=== PATIENT | female | born 1990 | race Caucasian/White ===

== ENCOUNTER 2024-09-09 11:44 | Outpatient (CLI) | payer BC, SELFPAY ==
[2024-09-09 12:25] LABS: Albumin Level 4.2 g/dl (3.5-5.0); Chloride 105 mmol/L (98-107); Potassium 3.8 mmoL/L (3.5-5.1); Sodium 140 mmol/L (136-145)
[2024-09-09 12:27] LABS: Blood Urea Nitrogen 11 mg/dl (7-17); Estimated Glomerular Filt Rate 72 ml/min (>60); GFR (African American) 87 ML/MIN (>60)
[2024-09-09 12:28] LABS: Alanine Aminotransferase 17 U/L (12-78); Albumin/Globulin Ratio 1.4 (1.1-1.8); Alkaline Phosphatase 100 U/L (38-126); Anion Gap 8.8 mEq/L (5-15); Aspartate Amino Transferase 28 U/L (14-36); Bilirubin,Total 0.7 mg/dl (0.2-1.3); Calcium 8.5 mg/dl (8.4-10.2); Carbon Dioxide 30 mmol/L (22.0-30.0); Globulin 2.9 g/dL (1.3-3.2); Glucose 90 mg/dl (74-100); Total Protein,Serum 7.1 g/dl (6.3-8.2)
[2024-09-09 12:30] LABS: Basophils # 0.1 K/mm3 (0-0.2); Basophils % 1.3 % (0.1-2.0); Eosinophils # 0.2 K/mm3 (0.0-0.4); Eosinophils % 6.5 % (0.1-12.0); Hematocrit 41.3 % (37.0-47.0); Hemoglobin 13.5 g/dL (12.2-16.2); Lymphocytes # 1.2 K/mm3 (0.7-4.5); Lymphocytes % 31.4 % (10-50); Mean Corpuscular HGB Conc 32.7 g/dL (31.8-35.4); Mean Corpuscular Hemoglobin 28.2 pg (27.0-31.2); Mean Corpuscular Volume 86.3 fl (81-99); Mean Platelet Volume 8.1 fl (7.4-10.4); Monocytes # 0.3 K/mm3 (0.1-1.0); Monocytes % 7.8 % (1.7-9.3); Platelet Count 237 K/mm3 (142-424); Red Blood Count 4.79 M/mm3 (4.20-5.40); Red Cell Distribution Width 13.8 % (11.5-17.5); White Blood Count 3.7 K/mm3 (4.8-10.8)
[2024-09-09 12:49] LABS: HCG,Quantitative < 2 mIU/ml (0-5.42)
== END 2024-09-09 23:59 | disposition home or self-care (01) ==
LOC: PREOP 11:44
PROVIDERS: PCP Family Medicine; Visit Provider Obstetrics & Gynecology
DX: Z30.09 Encounter for other general counseling and advice on contraception (principal)
CPT/HCPCS: 80053; 84702; 85025

== ENCOUNTER 2024-09-12 07:39 | Day surgery (SDC) | payer BC, SELFPAY ==
[2024-09-09 11:57] VITALS: BMI 28.3
[2024-09-12] VITALS (12 sets, daily range): BP systolic 118–126; BP diastolic 62–77; PULSE 84–110; RESP 14–20; TEMP 36.5–36.7; O2SAT 96–100; BMI 28.3
[2024-09-12] MEDS: LACTATED RINGERS 1000ML 1,000 ML 25 ML IV (08:04)
--- NOTE | 2024-09-12 11:08 | P.PNANES_ITS ---
[facility] Disclaimer: The information contained in this section may have been updated after the patient was seen, as this information can be updated by other users. Medical History Anemia ADHD (attention deficit hyperactivity disorder) Anxiety Depression Surgical History History of abdominoplasty History of weight loss surgery Family History Father Heart attack Hypertension Mother Diabetes Grandmother Diabetes Social History Smoking Status: Never smoker alcohol intake: never substance use type: denies use current occupational status: employed Travel in the last 8 weeks: None [facility] Anesthesia Checklist Patient Identification Patient Identification: Arm Band Structural Data Admitted From: Home Planned Operative Procedure/s: Laparoscopic Bilateral Salpingectomy Consent for Planned Operative Procedure(s) Verified: Yes Verified Documents: Surgical Consent and History and Physical NPO Status Verified Time NPO: 00:00 Additional verifications Anesthesia Reactions: No Hx Blood Transfusions: No Blood Transfusion Reaction: No Airway Assessment Mallampati Score:: Class II C-Spine Mobility Assessed: Yes TMJ Mobility Assessed: Yes Dentition: Good Dentition Neurological Assessment Level of Consciousness: Awake, Alert and Appropriate Anesthesia Plan Anesthesia Risk discussed: Yes Anesthesia Plan: Verified ASA Class: II Anesthesia Type: General
[2024-09-12] MEDS: LIDOCAINE 1% W/EPI 1:100,000 20ML VIAL 40 ML (11:11)
--- NOTE | 2024-09-12 11:51 | P.PNANES_ITS ---
[facility] Anesthesia Record Part I Anesthesia Record I Intake, IV Amount: 1,200 Hydration: Adequate Estimated blood loss (mL): 10 Urine output (mL): 100 Blood Products used (#): none Blood Pressure: 118/63 SaO2: 100 Pulse Rate: 103 Airway Patency: Patent Respiratory Rate: 16 Temperature: 98.1 F Patient is:: Drowsy and Stable Stable to PACU at:: 11:45
--- NOTE | 2024-09-12 12:05 | EXP.OP.NOTE ---
Date of procedure: 09/12/24 Pre-op Diagnosis:: 1. Desires sterilization 2. Desires IUD removal Post-op Diagnosis:: 1. Desires sterilization 2. Desires IUD removal Procedure performed:: Laparoscopic bilateral salpingectomy and IUD removal Surgeon:: Hermila Clemente DO COMPUTER APPLICATIONS INSTRUCTOR:: Gerson Peña Anesthesia: GETA Estimated blood loss (mL): 5 Operative findings:: 1. Bimanual examination revealed an anteverted 6-week size uterus with smooth contour without any adnexal masses. IUD removed without difficulty 2. Laparoscopic exam revealed normal-appearing uterus, ovaries, fallopian tubes and liver. Operative note:: Yarelis Whiting is a 34yo who desires permanent sterilization. Risk and benefits were reviewed at length. We discussed LARCs and she desired to proceed with a permanent procedure. The patient was taken to the operating room where general anesthesia was obtained and noted to be adequate. SCDs were placed for thromboembolism prophylaxis and found to be working. The patient was placed in the dorsal lithotomy position using yellowfin stirrups. Timeout verified the correct patient and procedure. The patient was prepped and draped in a usual sterile fashion. A catheter was used to drain her bladder. The cervix was identified but IUD strings were not. A long micha was placed in the cervical canal and the IUD was grasped and easily removed. A uterine manipulator was placed and my top gloves were removed. 10mL of Lidocaine with epinepherine was injected infraumbilically and a scalpel was used to make a 5 mm infraumbilical incision with the assistance from a hemostat. The skin was tented and Optiview blunt trocar was introduced into the abdomen in the usual fashion. After a second attempt and no abdominal access decision was made to proceed with entry at [facility]. Anesthesia inserted an OG tube, the area was identified, numbed and a small 5mm incision was made. The skin was tented and Optiview blunt trocar was introduced into the abdomen in the usual fashion. CO2 gas was connected with an initial pressure of 9 mmHg noted. Pneumoperitoneum was created to a pressure of 15 mmHg. The laparoscopic camera was inserted and a quick survey of the abdomen revealed grossly normal anatomy without injury. The uterus appeared to be anteverted with a normal size shape and contour. The patient was placed in Trendelenburg. 10mLs of local anesthetic was injected and a 5mm incision was then made in the left lower quadrant with careful attention to avoid the rectus muscles and vasculature and under direct laparoscopic visualization a blunt trocar was introduced into the abdominal cavity. This process was repeated at the infraumbilical location. The fallopian tubes were identified on the cornu of the uterus and followed out to the ovaries which revealed grossly appearing anatomy. A grasper was used to elevate the left fallopian tube. The Ligasure was used to grasp the fimbriated end of the fallopian tube, ensuring complete removal of the fimbriae, it was clamped, coagulated and transected. This process was repeated serially working towards the uterus to allow complete removal of the fallopian tube. Careful attention was given to transected the Mesosalpinx proximal to the fallopian tube. The fallopian tube was removed from the abdominal cavity and passed off the operative field to be sent to pathology. Hemostasis was noted. Attention was then turned to the right fallopian tube and the process was repeated. Hemostasis was noted and the tube was removed along with the trocar and handed off the operative field to be sent to pathology. Pneumoperitoneum reduced, and all ports removed. The 3 abdominal incisions were closed with 4-0 Monocryl. Dermabond was applied to each skin incision. The uterine manipulator was removed. All counts were correct x2, per nursing. The patient was extubated, stable, and transferred to the PACU. She will be discharged after meeting all DC criteria to include voiding, ambulating and tolerating PO independently. Condition: stable Disposition: same day Specimens:: Bilateral fallopian tubes Complications:: None
[2024-09-12] MEDS: MEPERIDINE 25MG/ML 1ML SYRINGE 25 MG IV (12:09)
--- NOTE | 2024-09-12 17:04 | EXP.ANES.II ---
[facility] Anesthesia Record Part II Anesthesia Record Part II Discharge Time: 12:30 Destination: Surgical Day Care (OP Surgery) PACU nurse assessment reviewed?: Yes Patient Condition:: Good Anesthesia Complications:: None Swallowing reflex intact?: Yes Airway Patency: Patent Cyanosis?: No Blood Pressure: 126/71 SaO2: 100 Respiratory Rate: 20 Pulse Rate: 93 Temperature: 98.1 F Mental Status: Alert & Oriented Pain level:: 0 Nausea and/or vomitting:: None Intake, IV Amount: 0 Hydration: Adequate
== END 2024-09-12 13:08 | disposition home or self-care (01) ==
PROVIDERS: PCP Family Medicine; Visit Provider Obstetrics & Gynecology
PROC: (CPT 58301; principal; 2024-09-12 09:15)
DX: Z30.2 Encounter for sterilization (principal); Z30.432 Encounter for removal of intrauterine contraceptive device
CPT/HCPCS: 58301; 58661; J3490; J1100; J1885; J2175; J2250; J2405; J3010; J7120

== ENCOUNTER 2025-02-12 09:05 | Day surgery (SDC) | payer BC, OTHER, SELFPAY ==
[2025-02-12 09:56] VITALS: BP 107/66; PULSE 65; RESP 18; TEMP 36.1; O2SAT 100; BMI 27.4
--- NOTE | 2025-02-12 13:59 | HMH.PROCNOTE ---
[facility] Procedure Note Date: 02/12/25 Time: 10:43 Procedure Note:: TEST: Upright Tilt Table Test REQUESTING PHYSICIAN: Shayla Anne MD INDICATION: dizziness and syncope MEDS: Adderrall, Reqip, Semaglutide, Lactulose PRE-TEST VITAL SIGNS (SUPINE): BP 123/62, HR 65, O2 sats 99% TEST SUMMARY: Patient was prepared per protocol. Patient was then tilted into the upright position at 75 degrees for a total of 30 minutes with the test being terminated at the end of the 30 minute test. She had no syncope or near syncope. She complained of some dizziness immediately after being placed in the upright position. This quickly resolved. Her lowest BP was 114/78 and maximum BP was 127/81. Minimum HR during test was 75 bpm and maximum HR was 86 bpm after 20 minutes. Her heart rhythm was sinus rhythm throughout the test. O2 sats remained 99% throughout the test. COMPLICATIONS: None CONCLUSION: This test is a negative tilt table test with no significant changes in BP and/or HR, with no significant symptoms induced.
== END 2025-02-12 11:30 | disposition home or self-care (01) ==
PROVIDERS: PCP Family Medicine; Visit Provider Specialist
DX: R42 Dizziness and giddiness (principal); R55 Syncope and collapse; F90.9 Attention-deficit hyperactivity disorder, unspecified type; G25.81 Restless legs syndrome
CPT/HCPCS: 93660